=== PATIENT | female | born 1995 | race Caucasian/White ===

== ENCOUNTER 2024-12-18 11:54 | Inpatient (IN) | payer BC, SELFPAY ==
[2024-12-18] VITALS (28 sets, daily range): BP systolic 100–153; BP diastolic 62–90; PULSE 63–108; RESP 12–99; TEMP 36.6–36.8; O2SAT 93–99; BMI 27.4
[2024-12-18] MEDS: RINGERS LACTATED 1000 ML 1,000 ML 100 ML IV (12:00)
--- NOTE | 2024-12-18 12:19 | ESHP_ITS ---
Documentation for date of: 12/18/24 OB Labor/Induct. HPI History of Present Illness Chief complaint: Active labor, prior : 4 Term pregnancies: 1 pregnancies: 0 Living children: 1 History of Abortions: Spontaneous and Elective: 2 History of sections: Yes History of : No TEX: 12/25/24 Gestational Age (weeks): 39 Gestational Age (days): 0 History of present illness: Patient is a 29-year-old -0-2-1 at 39 weeks with an EDC of 12/25/2024 who presented to triage in active labor. She was painfully saul every 3 minutes. Her bag of dennis was intact and she denied any vaginal bleeding. She reported good movement. She had a history of x 1 for arrest of descent and an 11 pound baby. She is consented for repeat in labor. All care is up-to-date in the chart with Dr Krishna. She was to be scheduled for a on 12/20/24. History of Present Dating criteria: LMP confirmed by 1st trimester US Adequate Care: Yes Ultrasounds: normal mid trimester US Obstetrical complications: none Medical complications: none Labs Maternal Blood Type: A Pos Labs: Positive: Rubella Titre and Negative: RPR, Hepatitis B, HIV, Chlamydia, Gonorrhea and Group Beta Strep Past Medical History Surgical History SURGICAL: Positive Section Past Medical History Comments PMH COMMENT: Patient has a history of migraine headaches, iron deficiency anemia, and GERD. She denies any other surgical history. Meds Home Medications and Allergies Home Medications ?Medication ?Instructions ?Recorded ?Confirmed ?Type iron 18 mg tablet 18 mg PO QDAY 02/08/2112/18 History prenat.vits,gerry,efv-xxxy-dbwoe 1 tab PO QDAY 02/08/21 12/18/24 History ferrous sulfate 325 mg (65 mg mg 12/18/24 History iron) tablet (FeroSul) vits no.130-ferrous fum tab 12/18/24 History 27 mg iron-folic acid 800 mcg tablet ( Vitamin) Allergies Allergy/AdvReac Type Severity Reaction Status Date / Time No Known Allergies Allergy Verified 12/18/24 12:12 OB Exam Physical Exam Vital signs: Pulse BP Pulse Ox 90 130/72 95 12/18/24 11:58 12/18/24 11:58 12/18/24 12:19 Constitutional Constitutional: moderate distress Comments: Patient is breathing through contractions and is uncomfortable. Routine Cardiovascular Exam Cardiovascular: Present RRR Routine Abdominal Exam Abdominal: Present soft and surgical scars (Well-healed Pfannenstiel incision) Comments: This approximately 36 weeks. EFW by Ez's about 8 pounds. 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 The risks of the procedure were discussed the patient including the risk of bleeding, infection, blood transfusion, damage to bowel, bladder, blood vessels, or other organs. Prolonged hospital stay and further surgery should any of the above occur. All questions were answered and all consents were signed. A consent for blood transfusion was also signed. Additional Plan Additional Plan Comment: Team called in and aware of repeat in labor about noon on 12/18/24
[2024-12-18 12:53] LABS: Basophils % (Auto) 0 % (0-2.5); Eosinophils # (Auto) 0.1 Thou/mm3 (0.0-0.5); Eosinophils % (Auto) 1 % (0-10); Hematocrit 33.2 % (36.0-46.0); Hemoglobin 11.2 g/dL (12.0-16.0); Immature Granulocytes % (Auto) 1 % (0-0); Immature Granulocytes Auto 0.07 Thou/mm3 (0.00-0.00); Lymphocytes # (Auto) 1.4 Thou/mm3 (1.0-4.8); Lymphocytes % (Auto) 15 % (10-50); Mean Corpuscular HGB Conc 33.7 g/dl (31.0-37.0); Mean Corpuscular Hemoglobin 32.3 pg (25.0-35.0); Mean Corpuscular Volume 96 fL (80-100); Monocytes # (Auto) 0.8 Thou/mm3 (0.0-0.8); Monocytes % (Auto) 9 % (0-12); Neutrophils # (Auto) 6.6 Thou/mm3 (1.8-7.7); Neutrophils % (Auto) 74 % (37-80); Nucleated Red Blood Cell % 0 /100 WBC (0); Platelet Count 185 Thou/mm3 (140-440); RDW Standard Deviation 50.3 fL (36.4-46.3); Red Blood Count 3.47 Miln/mm3 (4.00-5.20); White Blood Count 8.9 Thou/mm3 (3.6-11.0)
[2024-12-18] MEDS: FAMOTIDINE INJ 10 MG/ML VIAL 2 ML 20 MG IV (12:55)
[2024-12-18] MEDS: CITRIC ACID/SODIUM CITR 15 ML UDC (BICITRA) 30 ML PO (12:56)
[2024-12-18] MEDS: ceFAZolin/D5W 2 GM IV 2 GM/100 ML BAG IV (12:56)
[2024-12-18 13:28] LABS: Syphilis Nonreactive (Nonreactive)
--- NOTE | 2024-12-18 13:51 | ESOP_ITS ---
Operative Note - MD PHYSICIAN DERMATOLOGIST Procedure Date of procedure: 12/18/24 Procedure Performed: Repeat low-transverse section Indication: The patient is a 29-year-old -0-2-1 history of x 1 almost 4 years ago for arrest of descent. That baby weighed close to 11 pounds. Patient presented to triage in active labor painfully saul every 3 minutes. She is 39-0/7 weeks . All care uncomplicated and on the chart with Dr Krishna. She was consented for repeat section in labor. Pre-Op diagnosis: 1. Intrauterine at 39-0/7 weeks 2. Previous x 1 3. Active labor, for repeat section Post-Op diagnosis: Same Anesthesia type: Spinal Procedure description: After obtaining informed consent, the patient was brought back to the operating room and spinal anesthesia administered. She was then prepped and draped in the dorsal supine position with a leftward tilt in a normal sterile fashion. A Harman catheter was inserted into the patient's bladder. The patient was given Ancef 2 g IV by anesthesia. A Pfannenstiel skin incision was made with a scalpel through the patient's prior scar and carried down to the underlying fascia. The fascia was incised in the midline and the fascial incision extended laterally using Keith scissors. The superior aspect of the fascia was grasped with Adelina clamps and the underlying rectus muscles dissected off using blunt and sharp dissection. This was repeated in the inferior aspect of the incision. The rectus muscles were in the midline and the peritoneal cavity entered sharply with Metzenbaums. This was extended superiorly and inferiorly with good visualization of the bladder. The bladder blade was inserted and the uterus was incised in a low transverse fashion above the bladder reflection. The uterine incision was extended laterally using blunt dissection with the surgeon's fingers. The bag dennis was ruptured and clear fluid was noted. The bladder blade was removed, and the was delivered atraumatically in a vertex presentation. The cord was clamped and cut after waiting approximately 30 seconds, and the infant was handed off to the waiting pediatric staff. Cord blood was collected Cord gases were saved. The placenta was then manually removed and handed off the operating field. The uterus was exteriorized, and cleared of all clots and debris. The uterine incision was repaired using 0 Monocryl in a running locked fashion. Excellent hemostasis was noted. As the uterus was slightly boggy, IM Methergine was called for and given by anesthesia. The uterus was returned to the patient's abdominal cavity, and copious irrigation carried out with warm normal saline. The uterine incision was reexamined several times and noted to be hemostatic. After ensuring the rectus muscles were hemostatic these were closed in the midline using a running suture of 0 Monocryl. The fascia was closed with 0 Vicryl in a running fashion. The subcutaneous tissues were irrigated and found to be hemostatic. The skin was closed with a subcuticular suture of 4-0 Monocryl. The patient tolerated the procedure well, sponge, lap, needle, and instrument counts were correct x 2. The patient went to the recovery area awake and in stable condition. Complications were none. Fluids: crystalloid Fluid amount (mL): 1,000 Urine output (mL): 200 Specimen: none Implants: None Estimated blood loss (ml): 400 Findings: Liveborn female in the OA presentation, with no nuchal cord and no meconium. Apgars were 9 and 9 weight was 3560 g or approximately 7 pounds 14 ounces. Normal uterus and fallopian tubes. Ovaries enlarged consistent with possible PCOS bilaterally. Very little scar tissue was present in the patient's abdomen. The low uterine segment was thick. Complications: none Surgical staff Lyn MAURER Surgical Polisher Sand Margaret Hall CRNA Operation Date: 12/18/24 13:00 <No data on this case meets the specified criteria> Diagnosis Discharge Diagnosis (1) Previous section: Status: Acute (2) Active labor at term: Status: Acute (3) Delivery by section: Status: Acute Problem details: Routine postop care Problem List Completed Was Problem List Reviewed/Reconciled?: Yes
[2024-12-18] MEDS: ONDANSETRON INJ 2 MG/ML INJ 2 ML 4 MG IV (14:30)
[2024-12-18] MEDS: KETOROLAC INJ 30 MG/ML VIAL IVP (15:30)
[2024-12-18] MEDS: OXYTOCIN in NS 20 units 20 UNIT/1,000 ML BAG 125 UNIT IV (17:04)
[2024-12-19] MEDS: OXYTOCIN in NS 20 units 20 UNIT/1,000 ML BAG 125 UNIT IV (00:32)
[2024-12-19 04:39] VITALS: BP 100/63; PULSE 63; RESP 18; TEMP 36.9; O2SAT 95
[2024-12-19 05:25] LABS: Basophils % (Auto) 0 % (0-2.5); Eosinophils % (Auto) 0 % (0-10); Hematocrit 31.4 % (36.0-46.0); Hemoglobin 10.7 g/dL (12.0-16.0); Immature Granulocytes % (Auto) 1 % (0-0); Immature Granulocytes Auto 0.08 Thou/mm3 (0.00-0.00); Lymphocytes # (Auto) 1.6 Thou/mm3 (1.0-4.8); Lymphocytes % (Auto) 11 % (10-50); Mean Corpuscular HGB Conc 34.1 g/dl (31.0-37.0); Mean Corpuscular Hemoglobin 31.9 pg (25.0-35.0); Mean Corpuscular Volume 94 fL (80-100); Monocytes # (Auto) 1.3 Thou/mm3 (0.0-0.8); Monocytes % (Auto) 9 % (0-12); Neutrophils % (Auto) 79 % (37-80); Nucleated Red Blood Cell % 0 /100 WBC (0); Platelet Count 186 Thou/mm3 (140-440); RDW Standard Deviation 48.5 fL (36.4-46.3); Red Blood Count 3.35 Miln/mm3 (4.00-5.20)
--- NOTE | 2024-12-19 07:20 | ESPR_ITS ---
Subjective Subjective Interval history: Patient denies any problem complaint. She is voiding and ambulating and tolerating a regular diet. She denies any excessive vaginal bleeding. She denies any chest pain palpitation shortness of breath or lower extremity pain. Exam Vital Signs Temp Pulse Resp BP Pulse Ox O2 Del Method 98.4 F 63 18 100/63 95 Room Air 12/19/24 04:39 12/19/24 04:39 12/19/24 04:39 12/19/24 04:39 12/19/24 04:39 12/19/24 04:39 Routine Respiratory Exam Comments: Clear to auscultation bilaterally Routine Cardiovascular Exam Comments: Regular rate and rhythm Routine Abdominal Exam Comments: Dressing dry and intact, fundus is firm, nondistended Routine Extremities Exam Comments: Nontender or edema Objective Labs 12/19/24 04:45 Labs: Laboratory Results - last 24 hr 12/18/24 12/19/24 12:20 04:45 WBC 8.9 14.0 H D RBC 3.47 L 3.35 L Hgb 11.2 L 10.7 L Hct 33.2 L 31.4 L MCV 96 94 MCH 32.3 31.9 MCHC 33.7 34.1 RDW Std Deviation 50.3 H 48.5 H Plt Count 185 186 Neut % (Auto) 74 79 Lymph % (Auto) 15 11 [place] % (Auto) 9 9 Eos % (Auto) 1 0 Baso % (Auto) 0 0 Neut # (Auto) 6.6 11.0 H Lymph # (Auto) 1.4 1.6 [place] # (Auto) 0.8 1.3 H Eos # (Auto) 0.1 0.0 Baso # (Auto) 0.0 0.0 Immature Gran # (Auto) 0.07 H 0.08 H Absolute Nucleated RBC 0.00 0.00 Immature Gran % 1 H 1 H Nucleated RBC % 0 0 Syphilis Serology Nonreactive Blood Type A Positive Antibody Screen NEGATIVE Blood Bank Wristband ID Yes Assessment & Plan Problem List (1) Previous section: Status: Acute Assessment and plan: Remove dressing DC IV Encourage ambulation groundwater consultant Discharge home tomorrow (2) Active labor at term: Status: Acute (3) Delivery by section: Problem details: Routine postop care Status: Acute Time Spent With Patient Time: Total time spent is greater than 50% in coordination of care (as documented) at patient's floor/unit and/or counseling patient:
[2024-12-19 08:15] VITALS: BP 102/68; PULSE 82; RESP 14; TEMP 36.6; O2SAT 100
[2024-12-19] MEDS: KETOROLAC INJ 30 MG/ML VIAL IVP (08:23)
[2024-12-19] MEDS: DOCUSATE SOD 100 MG CAPSULE PO (08:23)
[2024-12-19 12:00] VITALS: BP 103/65; PULSE 71; RESP 16; TEMP 36.9; O2SAT 98
[2024-12-19 19:45] VITALS: BP 99/64; PULSE 82; RESP 16; TEMP 36.8; O2SAT 95
[2024-12-19] MEDS: IBUPROFEN TAB 400 MG TABLET 800 MG PO (20:14)
[2024-12-19] MEDS: Milk Of Magnesia Susp 30 ML UDC PO (20:15)
[2024-12-19] MEDS: SIMETHICONE 80 MG CHEW PO (20:15)
[2024-12-20 03:20] VITALS: BP 101/66; PULSE 78; RESP 16; TEMP 36.6; O2SAT 97
--- NOTE | 2024-12-20 03:31 | ESPR_ITS ---
Subjective Subjective Interval history: Patient denies any problem or complaint. She is voiding and ambulating and tolerating a regular diet. She denies any excessive vaginal bleeding. She denies any dizziness or lightheadedness. She denies any chest pain palpitations shortness of breath or lower extremity pain. She denies any depression or anxiety. Exam Vital Signs Temp Pulse Resp BP Pulse Ox O2 Del Method 98.2 F 82 16 99/64 95 Room Air 12/19/24 19:45 12/19/24 19:45 12/19/24 19:45 12/19/24 19:45 12/19/24 19:45 12/19/24 19:45 Routine Respiratory Exam Comments: Clear to auscultation bilaterally Routine Cardiovascular Exam Comments: Regular rate and rhythm Routine Abdominal Exam Comments: Incision clear and intact. Fundus is firm Routine Extremities Exam Comments: Nontender or edema Objective Labs 12/19/24 04:45 Labs: Laboratory Results - last 24 hr 12/19/24 04:45 WBC 14.0 H D RBC 3.35 L Hgb 10.7 L Hct 31.4 L MCV 94 MCH 31.9 MCHC 34.1 RDW Std Deviation 48.5 H Plt Count 186 Neut % (Auto) 79 Lymph % (Auto) 11 [place] % (Auto) 9 Eos % (Auto) 0 Baso % (Auto) 0 Neut # (Auto) 11.0 H Lymph # (Auto) 1.6 [place] # (Auto) 1.3 H Eos # (Auto) 0.0 Baso # (Auto) 0.0 Immature Gran # (Auto) 0.08 H Absolute Nucleated RBC 0.00 Immature Gran % 1 H Nucleated RBC % 0 Assessment & Plan Problem List (1) Previous section: Status: Acute Assessment and plan: Discharge home Discharge instructions given Follow-up in the office in 1 week (2) Active labor at term: Status: Acute (3) Delivery by section: Problem details: Routine postop care Status: Acute Time Spent With Patient Time: Total time spent is greater than 50% in coordination of care (as documented) at patient's floor/unit and/or counseling patient:
--- NOTE | 2024-12-20 03:31 | PD.LDDS ---
DS: Providers Provider Date of admission: 12/18/24 12:08 Primary care physician: Physician No Primary/Family Admitting Provider: Davida Aguiar MD ([facility]) Attending Provider on Admission: Yung Krishna MD Consults: 12/18/24 13:49 Referral Routine Comment: Attending Provider on DC: Yung Krishna MD Discharging Provider: Yung Krishna MD DS: Diagnosis Problem List Completed Was Problem List Reviewed/Reconciled?: Yes Summary/Hosp Course Brief History: Patient is a 29-year-old -0-2-1 at 39 weeks with an EDC of 12/25/2024 who presented to triage in active labor. She was painfully saul every 3 minutes. Her bag of dennis was intact and she denied any vaginal bleeding. She reported good movement. She had a history of x 1 for arrest of descent and an 11 pound baby. She is consented for repeat in labor. All care is up-to-date in the chart with Dr Krishna. She was to be scheduled for a on 12/20/24. Peripartum Data Delivery Method: Low Transverse Procedures: Procedures Operation Date: 12/18/24 13:00 Actual Procedure Side Surgeon p in OB Davida Aguiar ([facility])MD Time Spent with Patient Time attestation: Total time spent providing and/or coordinating discharge services: Exam Vital Signs Temp Pulse Resp BP Pulse Ox O2 Del Method 98.2 F 82 16 99/64 95 Room Air 12/19/24 19:45 12/19/24 19:45 12/19/24 19:45 12/19/24 19:45 12/19/24 19:45 12/19/24 19:45 Discharge Plan Plan Patient Disposition: HOME (Self Care) Patient condition on transfer: Stable Prescriptions/Referrals Prescriptions/Med Rec: New hydrocodone-acetaminophen 5-325 mg tablet 1 tab PO Q6H MDD 4 PRN (Reason: pain) Qty: 20 0RF ibuprofen 600 mg tablet 600 mg PO Q6H MDD 4 PRN (Reason: pain) Qty: 30 0RF Continued ferrous sulfate [FeroSul] 325 mg (65 mg iron) tablet Patient Comments: TAKE 1 TABLET BY MOUTH TWICE DAILY No Action Vitamin Tablet 1 tab PO QDAY iron 18 mg Tablet 18 mg PO QDAY Vitamin 27 mg iron- 800 mcg tablet Patient Comments: TAKE 1 TABLET BY MOUTH ONCE DAILY Referrals: No Primary/Family,Physician [Primary Care Provider] - Patient/Caregiver Discharge Instructions Education Materials: C Section Dc Print Language: Amharic Stand Alone Forms: [employer] Deng Info., Patient Portal Info Letter Planned Discharge Date 12/20/24
[2024-12-20] MEDS: IBUPROFEN TAB 400 MG TABLET 800 MG PO (03:52)
[2024-12-20 08:00] VITALS: BP 110/62; PULSE 85; RESP 16; TEMP 36.8
[2024-12-20] MEDS: DOCUSATE SOD 100 MG CAPSULE PO (09:47)
== END 2024-12-20 11:42 | disposition home or self-care (01) | DRG 788 ==
LOC: S4SX 12:39 → S4NX 13:13
PROVIDERS: Admitting Provider Obstetrics & Gynecology; Visit Provider Specialist
PROC: 10D00Z1 Extraction of Products of Conception, Low, Open Approach (ICD-10-PCS; CPT 59514; principal; 2024-12-18 12:45)
DX: O34.211 Maternal care for low transverse scar from previous cesarean delivery (principal); Z37.0 Single live birth; Z3A.39 39 weeks gestation of pregnancy
CPT/HCPCS: 36415; 85025; 86780; 86850; 86900; 86901; A4649; J0689; J1100; J1885; J2210; J2274; J2371; J2405; J2590; J3010; J3490; J7120; A9270; J2270

== ENCOUNTER 2024-12-24 18:41 | Inpatient (IN) | payer BC, SELFPAY ==
[2024-12-24 18:43] VITALS: BMI 25.2
[2024-12-24 18:48] VITALS: BP 150/84; PULSE 95; RESP 18; TEMP 38.1; O2SAT 97
--- NOTE | 2024-12-24 19:00 | EKG_ITS ---
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
--- NOTE | 2024-12-24 19:01 | PD.EDRME ---
Rapid Medical Screening Exam RME Arrival date/time: 12/24/24 18:41 29 yo f present to Ed for c/o of fever, recent C/S I have greeted and performed a focused initial assessment of this patient. A comprehensive ED assessment and evaluation of the patient, analysis of all test results, and completion of the medical decision making process will be conducted by additional ED providers. Chief Complaint: Fever Time Seen by Provider: 12/24/24 18:45 Vital signs: Vital Signs Temperature 100.6 F H 12/24/24 18:48 Pulse Rate 95 12/24/24 18:48 Respiratory Rate 18 12/24/24 18:48 Blood Pressure 150/84 H 12/24/24 18:48 Pulse Oximetry (%) 97 12/24/24 18:48 Oxygen Delivery Method Room Air 12/24/24 18:48
[2024-12-24 19:19] VITALS: TEMP 38.1
[2024-12-24] MEDS: ACETAMINOPHEN 500 MG TABLET 1000 MG PO (19:19)
--- NOTE | 2024-12-24 19:21 | PC.NURSE ---
per Provider Donna viveroscel sepsis alert
--- NOTE | 2024-12-24 19:29 | PD.EDFEVER ---
ED Fever RME/HPI General Chief Complaint: Fever Stated Complaint: FEVER 100.5 TODAY, S/P 02/17 Time Seen by Provider: 12/24/24 18:45 Arrival date/time: 12/24/24 18:41 RME / HPI RME / HPI Narrative: 12/24/24 18:41 29 yo f present to Ed for c/o of fever, recent C/S I have greeted and performed a focused initial assessment of this patient. A comprehensive ED assessment and evaluation of the patient, analysis of all test results, and completion of the medical decision making process will be conducted by additional ED providers. This section includes all my notes and documentations, including HPI, PE, and ED course. Spencer Thompson MD HPI: 29 y/o female with recent SHx of section and Hx of Migraine and Anemia presents to ED c/o fever of 100.3F for 24 hours. Denies any cough, runny nose, or sore throat. Patient recently had 6 days ago and is currently pumps breast milk. No headache. No neck pain or stiffness. No abdominal pain. No pelvic pain. No vaginal discharge. No back pain or flank pain. No other complaints reported. ROS: All negative except as documented in HPI. Physical Exam: General: Alert and oriented. No acute distress when remaining still. Eyes: Conjunctivae and lids clear. ENT: No nasal congestion. Neck: Supple. Heart: RRR. Lungs: No respiratory distress. Good air movement. No rhonchi, wheezing, rales. Abdomen: Soft with diffuse tenderness, consistent with recent . Normal bowel sounds. No distension. No rebound or guarding. Back: No CVA tenderness. Skin: Warm and dry. Neuro: Alert and oriented X 3. I reviewed all diagnostic test results. My interpretation of the EKG is sinus rhythm with no acute ST?T changes. My interpretation of the chest x-ray is no active disease. My review of the abdomen/pelvis CT report is NAD. My review of the transvaginal US report is retained products of conception. Blood tests remarkable for ESR 35, CRP 4.4. UA showed RBC 74 and WBC 26 and rare bacteria. COVID/influenza negative. At this point, diagnoses include Endometritis and UTI. Treatment here included Ibuprofen, Zofran, Zosyn, and IV fluid. Patient remained stable. I discussed the case with our [employer]AVER, Dr. Krishna. About the presentation and exam and diagnostics and treatments here. And need of further care in the hospital. Will accept the patient. Spencer Thompson MD Related Data Home Medications ?Medication ?Instructions ?Recorded ?Confirmed ferrous sulfate 325 mg (65 mg mg 12/18/24 iron) tablet (FeroSul) vits no.130-ferrous fum tab 12/18/24 27 mg iron-folic acid 800 mcg tablet ( Vitamin) Previous Rx's ?Medication ?Instructions ?Recorded hydrocodone 5 mg-acetaminophen 325 1 tab PO Q6H PRN pain #20 tabs 12/19/24 mg tablet ibuprofen 600 mg tablet 600 mg PO Q6H PRN pain #30 tabs 12/19/24 Allergies Allergy/AdvReac Type Severity Reaction Status Date / Time No Known Allergies Allergy Verified 12/24/24 18:43 Review of Systems Review of Systems Systems Reviewed: All systems reviewed, normal except as documented Narrative Review of Systems: Refer to HPI above. Past Medical History Past Medical History NEUROLOGIC: Positive Neurological Disorders and Migraine (TYLENOL) RESPIRATORY: Positive Pneumonia GENITOURINARY: Positive Genitourinary Disorders (UTI WITH ABT TX.) REPRODUCTIVE: Positive Previous Pregnancies MUSCULOSKELETAL: Positive Musculoskeletal Disorders (CARPAL TUNNEL) HEMATOLOGIC: Positive Blood Disorders and Anemia Family History FAMILY HISTORY: Positive Family Cancer (MATERNAL GMA- UNKNOWN CA) Surgical History SURGICAL: Positive Section Physical Exam Narrative Physical exam: Refer to HPI above. ED Exam Narrative Physical exam: Refer to HPI above. Course Quality Measures none Orders Category Date Time Status Bedside COVID-19 Antigen Test NOW Care 12/24/24 19:37 Active Bedside Influenza A&B Antigen Test NOW Care 12/24/24 19:[address] Screening NOW Care 12/24/24 19:00 Active EKG (ED ONLY) *Do not use* NOW Care 12/24/24 19:[address] abdomen pelvis wo con Stat Exams 12/24/24 19:39 Completed EKG (ED Only) Stat Exams 12/24/24 19:00 Draft US transvaginal Stat Exams 12/24/24 21:46 Completed XR chest 1V portable Stat Exams 12/24/24 19:39 Completed Blood Culture (Lab) Stat Lab 12/24/24 19:43 Received C-Reactive Protein Stat Lab 12/24/24 19:51 Completed CBC Stat Lab 12/24/24 19:51 Completed Comprehensive Metabolic Panel Stat Lab 12/24/24 19:51 Completed Lactate (Lactic Acid) Stat Lab 12/24/24 19:51 Completed Lipase Stat Lab 12/24/24 19:51 Completed Magnesium Stat Lab 12/24/24 19:51 Completed Procalcitonin Stat Lab 12/24/24 19:51 Completed RSV [Respiratory Syncytial Virus Ag] Stat Lab 12/25/24 01:24 Received Sed Rate (ESR) Stat Lab 12/24/24 19:51 Completed Urinalysis Stat Lab 12/24/24 19:45 Completed Urine Culture Stat Lab 12/24/24 19:45 Received Urine Culture Stat Lab 12/24/24 21:45 Ordered Acetaminophen Tab [Tylenol ES Tab] Med 12/24/24 19:01 Discontinued 1,000 mg PO X1 ONE Ibuprofen Tab [Motrin Tab] Med 12/24/24 19:38 Discontinued 600 mg PO X1 ONE Piper/Tazo 3.375 gm Premix [Zosyn] Med 12/24/24 23:48 Discontinued 3.375 gm in 50 ml IV X1 Sodium Chloride 0.9% 1000 ml [Ns] 1,000 ml Med 12/24/24 19:01 Discontinued IV 999 mls/hr Vital Signs Vital signs: Vital Signs Temperature 100.6 F H 12/24/24 18:48 Pulse Rate 95 12/24/24 18:48 Respiratory Rate 18 12/24/24 18:48 Blood Pressure 150/84 H 12/24/24 18:48 Pulse Oximetry (%) 97 12/24/24 18:48 Oxygen Delivery Method Room Air 12/24/24 18:48 Fever MDM Narrative MDM Narrative:: Scribe Attestation: I, Sol Zhao, am scribing for and in the presence of Dr. Thompson. Provider Notation: Although this document has been carefully reviewed, there may still be some phonetic and other typographical errors. These errors are purely grammatical due to imperfections in the software program and should not be construed in any way to compromise the substance of the patient's medical care during this visit. 29 y/o female with recent SHx of section and Hx of Migraine and Anemia presents to ED c/o fever of 100.3F x 1 day. Denies any cough, runny nose, or sore throat. Patient recently had 6 days ago and is currently pumps breast milk. No other complaints reported. Patient data External records reviewed:: [facility] previous records (No recent ED records to review.) Clinical information provided by:: patient Social determinants that could affect healthcare access:: none Patient has the following chronic illnesses:: Anemia, Migraine, SHx How is presenting disease/condition affected by chronic disease/condition?: exacerbated by Evaluation data The following diagnostics were reviewed and interpreted by me:: lab results, radiology exam(s) and EKG tracing(s) Lab and/or radiology exams considered but not ordered:: None. Interpretation Summary: Endometritis and UTI Medications / Prescriptions Medications or Prescriptions considered but not ordered:: None. Medication administrations:: Medication Administration History Acetaminophen (Acetaminophen 325 Mg Tablet) 650 mg PO Q6H PRN PRN Reason: Fever >101.5 Stop: 01/23/25 23:51 Hydrocodone Bitart/Acetaminophen (Hydrocodone/Apap 10/325 Tab) 1 tab PO Q4H PRN PRN Reason: PAIN SCALE 7-10 (Severe Stop: 12/29/24 23:51 Bisacodyl (Bisacodyl 5 Mg Tabec) 10 mg PO QDAY PRN PRN Reason: CONSTIPATION Stop: 01/23/25 23:51 Bisacodyl (Bisacodyl 10 Mg Supp) 10 mg WI QDAY PRN PRN Reason: CONSTIPATION Stop: 01/23/25 23:51 Dextrose/Sodium Chloride (D5-1/2ns) 1,000 mls @ 75 mls/hr IV .[id number] ELAINE Stop: 01/23/25 23:44 Piperacillin/Tazobactam/Dextrose (Zosyn) 50 mls @ 100 mls/hr IV Q6HR ELAINE Stop: 01/01/25 00:01 Ibuprofen (Ibuprofen Tab 600 Mg Tablet) 600 mg PO Q6H PRN PRN Reason: PAIN SCALE 1-3 (mild Stop: 01/23/25 23:51 Ondansetron HCl (Ondansetron Inj 2 Mg/Ml Inj 2 Ml) 4 mg IV Q6H PRN PRN Reason: NAUSEA OR VOMITING Stop: 01/23/25 23:51 Oxycodone/Acetaminophen (Oxycodone/Apap 5/325 Tablet) 1 tab PO Q6H PRN PRN Reason: PAIN SCALE 4-6 (Moderate Stop: 12/29/24 23:51 Discontinued Medications Acetaminophen (Acetaminophen 500 Mg Tablet) 1,000 mg PO X1 ONE Stop: 12/24/24 19:02 Last Admin: 12/24/24 19:19 Dose: 1,000 mg Documented By: ADAM Sodium Chloride (Ns) 1,000 mls @ 999 mls/hr IV .Q1H1M ONE Stop: 12/24/24 20:01 Last Admin: 12/24/24 19:35 Dose: Not Given Documented By: ADAM Non-Admin Reason: Discontinued Piperacillin/Tazobactam/Dextrose (Zosyn) 3.375 gm in 50 mls @ 100 mls/hr IV X1 ONE Stop: 12/25/24 00:17 Last Admin: 12/25/24 01:23 Dose: 100 mls/hr Documented By: VISHNU Sodium Chloride (Ns) 1,000 mls @ 999 mls/hr IV .Q1H1M ONE Stop: 12/25/24 00:53 Last Admin: 12/25/24 01:14 Dose: 999 mls/hr Documented By: VISHNU Ibuprofen (Ibuprofen Tab 600 Mg Tablet) 600 mg PO X1 ONE Stop: 12/24/24 19:39 Last Admin: 12/25/24 01:11 Dose: Not Given Documented By: MC Non-Admin Reason: Patient Refused Ondansetron HCl (Ondansetron Inj 2 Mg/Ml Inj 2 Ml) 4 mg IV X1 ONE; Protocol Stop: 12/24/24 23:54 Last Admin: 12/25/24 01:10 Dose: Not Given Documented By: MC Non-Admin Reason: Patient Refused Ibuprofen, Zofran, Zosyn, IV fluid Consultations Consultation(s) initiated? (list below): No Consultation #1 (Physician, Specialty, Details): I discussed the case with our [employer]ER, Dr. Krishna. About the presentation and exam and diagnostics and treatments here. And need of further care in the hospital. Will accept the patient. Diagnosis Fever Differential Diagnosis: fever of unknown origin, viral infection, influenza and other (pelvic inflammatory disease (PID) vs endometriosis vs fever) Most likely diagnosis given after review of the tests above:: Endometritis and UTI Admission Indicated Admission indicated?: indicated Admission Request Was there a request for admission?: Yes Admission Attestation Admission request attestation: Discussed case with [employer] service regarding admission. Discussed patients ED course, exam findings, labs, and radiology results. Agrees to accept the patient for admission. Disposition Plan Disposition Plan: Admit Discharge Plan Plan Patient Disposition: Admit Acute Care w/in Hospital Problem List Clinical Impression: Endometritis, UTI (urinary tract infection)
--- NOTE | 2024-12-24 19:39 | XR_ITS ---
Examination: PA chest single view Technique: Upright PA chest single view Exam date and time: December 24, 20242 hrs. Indications: Status post December 20, 2024 with onset fever today. Findings: Normal heart size. Lungs are clear. The osseous structures are intact Impression: No active disease
--- NOTE | 2024-12-24 19:39 | XR_ITS ---
Examination: CT abdomen and pelvis without contrast. Coronal 3-D reconstructions. Sagittal 2-D reconstructions. Date and time of exam:December 24, 2024 2005 hrs. Indications: Fever after December 18, 2024 CTDI: vol (mGy): 68 DLP: (mGycm): 683 Technique: Axial images of the abdomen have been obtained, 3 mm slice thickness Intravenous contrast material has not been administered. Low dose protocols were performed. One or more of the following dose reduction techniques were used; automated exposure control, adjustment of the mA and/or KV according to patient size, use of iterative reconstruction technique. Findings: No focal liver or splenic lesions No gallstones No pancreatic mass Multiple left renal calculi, the largest 5 mm No hydronephrosis or ureteral calculi Aorta normal size No pericecal inflammatory change Abundant stool throughout the colon enlarged uterus with heterogeneous endometrial stripe Urinary bladder wall thickening up to 4 mm No bladder calculi Osseous structures intact Impression: Recommend transvaginal pelvic sonography follow-up to exclude retained positive conception Multiple nonobstructing left renal calculi No CT findings of bowel obstruction or diverticulitis Mild cystitis pattern
[2024-12-24 19:49] LABS: Collection Type, Urine Clean Catch
[2024-12-24 19:59] LABS: Lactate (Lactic Acid) 0.9 mMol/L (0.4-2.0)
[2024-12-24 20:02] LABS: Basophils % (Auto) 0 % (0-2.5); Eosinophils # (Auto) 0.1 Thou/mm3 (0.0-0.5); Eosinophils % (Auto) 1 % (0-10); Hematocrit 35.4 % (36.0-46.0); Hemoglobin 11.8 g/dL (12.0-16.0); Immature Granulocytes % (Auto) 1 % (0-0); Immature Granulocytes Auto 0.07 Thou/mm3 (0.00-0.00); Lymphocytes # (Auto) 1.6 Thou/mm3 (1.0-4.8); Lymphocytes % (Auto) 16 % (10-50); Mean Corpuscular HGB Conc 33.3 g/dl (31.0-37.0); Mean Corpuscular Hemoglobin 31.6 pg (25.0-35.0); Mean Corpuscular Volume 95 fL (80-100); Monocytes # (Auto) 0.8 Thou/mm3 (0.0-0.8); Monocytes % (Auto) 8 % (0-12); Neutrophils # (Auto) 7.4 Thou/mm3 (1.8-7.7); Neutrophils % (Auto) 74 % (37-80); Nucleated Red Blood Cell % 0 /100 WBC (0); Platelet Count 345 Thou/mm3 (140-440); RDW Standard Deviation 49.3 fL (36.4-46.3); Red Blood Count 3.74 Miln/mm3 (4.00-5.20); White Blood Count 9.9 Thou/mm3 (3.6-11.0)
[2024-12-24 20:02] LABS: Bacteria,Urine Rare; Bilirubin,Urine Negative (Negative); Blood,Urine 3+ (Negative); Clarity,Urine Clear (Clear/Hazy); Color,Urine Lt-Yellow (Lt Yel-Yel); Glucose, Urine Negative (Negative); Hyaline Casts,Urine < 1 /hpf (0-1); Ketones,Urine Negative (Negative); Leukocyte Esterase,Urine Positive (Negative); Nitrite,Urine Negative (Negative); PH,Urine 6.5 (5.0-7.0); Protein,Urine Negative (Neg - Trace); RBC,Urine 74 /hpf (0-3); Specific Gravity,Urine 1.015 (1.001-1.035); Squamous Epithelial Cell,Urine 4 /hpf (0-5); Urobilinogen,Urine Negative mg/dL (0.0-1.0); WBC,Urine 26 /hpf (0-5)
[2024-12-24 20:30] LABS: Alanine Aminotransferase 17 U/L (10-49); Albumin, Serum 3.8 gm/dL (3.5-5.0); Albumin/Globulin Ratio 1.5 (1.2-2.2); Alkaline Phosphatase 189 U/L (46-116); Anion Gap 7 (7-16); Aspartate Amino Transferase 23 U/L (0-34); BUN/Creatinine Ratio 23 Ratio (12-20); Bilirubin,Total 0.9 mg/dL (0.3-1.2); Blood Urea Nitrogen 14 mg/dL (9-23); C-Reactive Protein 4.4 mg/dL (0.0-0.9); Calcium 8.8 mg/dL (8.3-10.6); Carbon Dioxide 23.1 mMol/L (20.0-31.0); Chloride 107 mMol/L (98-107); Creatinine (Component) 0.6 mg/dL (0.6-1.3); Globulin 2.5 gm/dL (2.3-3.5); Glucose 100 mg/dL (74-106); Lipase 29 U/L (12-53); Magnesium 1.7 mg/dL (1.6-2.6); Osmolality,Calculated 274 (275-295); Potassium 3.9 mMol/L (3.4-5.1); Procalcitonin 0.04 ng/ml (0.0-0.49); Sodium 137 mMol/L (136-145); Total Protein 6.3 gm/dL (5.7-8.2); eGFR > 60 See Note
[2024-12-24 21:13] LABS: Sed Rate (ESR) 35 mm/hr (0-20)
--- NOTE | 2024-12-24 21:46 | XR_ITS ---
Examination: Transvaginal ultrasound of the pelvis, complete Technique: Transvaginal sonographic images pelvis performed using pope scale imaging Exam date and time: December 24, 2024 at 10:22 PM Indications: Acute fever post December 20, 2024 Findings: Uterus 13.4 cm with thickened endometrium up to 29 mm No uterine mass Right ovary 3.0 cm arterial flow Left ovary 3.7 cm arterial flow Impression: Positive for retained products of conception.
--- NOTE | 2024-12-25 00:03 | PD.GYNHP ---
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 SNOWDEN is a 29 year old female who is PostOp Day #7 S/P Ceasarean Delivery who presents to the ER complaining of fever with no other complaints. Her temperature in the ER was 100.3. She is breast feeding and report breast engorgment but no breast tenderness or masses or discoloration. She denies in sore throat, cough, headache, stiff neck, rash, flank pain, chest pain, shortness or breath, dysuria, diarrhea, or vomiting or lower leg pain or swelling. She has incisional pain but its getting better and she only has to take ibuprofen. Denies and drainage from the incision. She denies any foul smelling vaginal discharge or uterine tenderness. Review of Systems Review of Systems Narrative Review of Systems: as above Past Medical History Past Medical History NEUROLOGIC: Positive Migraine GASTROINTESTINAL: Positive Gastroesophageal Reflux Disease HEMATOLOGIC: Positive Anemia Surgical History SURGICAL: Positive Section Social History SOCIAL: Denies any alcohol , drug use or smoking Meds Home Medications and Allergies Home Medications ?Medication ?Instructions ?Recorded ?Confirmed ?Type ferrous sulfate 325 mg (65 mg mg 12/18/24 History iron) tablet (FeroSul) vits no.130-ferrous fum tab 12/18/24 History 27 mg iron-folic acid 800 mcg tablet ( Vitamin) Allergies Allergy/AdvReac Type Severity Reaction Status Date / Time No Known Allergies Allergy Verified 12/24/24 18:43 Exam - 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 TEACHER - Results Labs 12/24/24 19:51 12/24/24 19:51 Labs: Short CBC 12/24/24 Range/Units 19:51 WBC 9.9 (3.6-11.0) Thou/mm3 Hgb 11.8 L (12.0-16.0) g/dL Hct 35.4 L (36.0-46.0) % Plt Count 345 D (140-440) Thou/mm3 BMP 12/24/24 19:51 Sodium 137 Potassium 3.9 Chloride 107 Carbon Dioxide 23.1 BUN 14 Creatinine 0.6 Glucose 100 Calcium 8.8 Liver Function 12/24/24 Range/Units 19:51 Total Bilirubin 0.9 (0.3-1.2) mg/dL AST 23 (0-34) U/L ALT 17 (10-49) U/L Alkaline Phosphatase 189 H (46-116) U/L Albumin 3.8 (3.5-5.0) gm/dL Urine 12/24/24 Range/Units 19:45 Urine Color Lt-Yellow (Lt Yel-Yel) Urine Clarity Clear (Clear/Hazy) Urine pH 6.5 (5.0-7.0) Ur Specific [place] 1.015 (1.001-1.035) Urine Protein Negative (Neg - Trace) Urine Glucose (UA) Negative (Negative) Impressions Impression: POD #7 S/P C/S with fever Breast engorgement Possible mild endometritis Doubtful RPOC due to C/S and placenta remnants are removed and the uterine contents evacuated prior to closure of uterine incision. In addition the patient does not have any excessive vaginal bleeding. Discharge home with Augmentin and follow up with me in the office tomorrow Discharge instructions given. Quality Measures Quality Measures none
[2024-12-25 00:47] VITALS: BP 125/85; PULSE 81; RESP 18; TEMP 36.9; O2SAT 97
[2024-12-25 01:12] VITALS: TEMP 36.9
[2024-12-25] MEDS: SODIUM CHLORIDE 0.9% 1000 ML 1,000 ML 999 ML IV (01:14)
[2024-12-25] MEDS: PIPER/TAZO 3.375 GM PREMIX 3.375 GM/50 ML BAG IV ×2 (01:23→06:15)
[2024-12-25 03:00] LABS: Respiratory Syncytial Virus Ag Negative (Negative)
[2024-12-25 03:14] VITALS: BMI 26.1
[2024-12-25] MEDS: DEXTROSE 5%-0.45% NS 1,000 ML 75 ML IV (03:17)
[2024-12-25 04:00] VITALS: BP 132/86; PULSE 78; RESP 18; TEMP 36.3; O2SAT 98
[2024-12-25 08:00] VITALS: BP 142/90; PULSE 72; RESP 18; TEMP 36.3; O2SAT 98
--- NOTE | 2024-12-25 08:45 | ESDS_ITS ---
Planned Discharge Date 12/25/24 DS: Providers Provider Date of admission: 12/24/24 23:52 Primary care physician: Lasha Espino MD Admitting Provider: Yung Krishna MD Attending Provider on Admission: Yung Krishna MD Attending Provider on DC: Yung Krishna MD Discharging Provider: Yung Krishna MD DS: Diagnosis Discharge Diagnosis (1) fever: Status: Acute (2) Previous section: Status: Acute (3) Endometritis: Status: Acute (4) UTI (urinary tract infection): Status: Acute (5) Breast engorgement: Status: Acute Problem List Completed Was Problem List Reviewed/Reconciled?: Yes Hospital Course Hospital Course Hospital course: Ms. SNOWDEN is a 29 year old female who is PostOp Day #7 S/P Ceasarean Delivery who presents to the ER complaining of fever with no other complaints. Her temperature in the ER was 100.3. She is breast feeding and report breast engorgment but no breast tenderness or masses or discoloration. She denies in sore throat, cough, headache, stiff neck, rash, flank pain, chest pain, shortness or breath, dysuria, diarrhea, or vomiting or lower leg pain or swelling. She has incisional pain but its getting better and she only has to take ibuprofen. Denies and drainage from the incision. She denies any foul smelling vaginal discharge or uterine tenderness. 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 Temp Pulse Resp BP Pulse Ox O2 Del Method 97.4 F 72 18 142/90 H 98 Room Air 12/25/24 08:00 12/25/24 08:00 12/25/24 08:00 12/25/24 08:00 12/25/24 08:00 12/25/24 08:00 Discharge Plan Plan Patient Disposition: HOME (Self Care) Patient condition on transfer: Stable Prescriptions/Referrals Prescriptions/Med Rec: New amoxicillin-pot clavulanate 875-125 mg tablet 1 tab PO Q12H Qty: 10 0RF Continued ferrous sulfate [FeroSul] 325 mg (65 mg iron) tablet Patient Comments: TAKE 1 TABLET BY MOUTH TWICE DAILY Vitamin 27 mg iron- 800 mcg tablet Patient Comments: TAKE 1 TABLET BY MOUTH ONCE DAILY hydrocodone-acetaminophen 5-325 mg tablet 1 tab PO Q6H MDD 4 PRN (Reason: pain) Qty: 20 0RF ibuprofen 600 mg tablet 600 mg PO Q6H MDD 4 PRN (Reason: pain) Qty: 30 0RF Referrals: Lasha Espino MD [Primary Care Provider] - Patient/Caregiver Discharge Instructions Discharge Activity: activity as tolerated Other Discharge Activity Instructions:: Follow up with Dr Krishna in the office Thursday at 2:30pm Print Language: Kenyan Stand Alone Forms: [employer] Award Info., Patient Portal Info Letter Discharge Order Discharge Orders: Discharge (Routine); Ordered 12/25/24 Ordered By: Yung Krishna
== END 2024-12-25 09:20 | disposition home or self-care (01) | DRG 776 ==
LOC: SERX 23:57 → SERHOLD 12-25 00:18 → S3SX 12-25 02:43
PROVIDERS: Physician Assistant; Admitting Provider Specialist; Emergency Provider Emergency Medicine; PCP Family Medicine; Visit Provider Specialist
DX: O86.20 Urinary tract infection following delivery, unspecified (principal); O86.12 Endometritis following delivery; Z98.891 History of uterine scar from previous surgery; N64.59 Other signs and symptoms in breast
CPT/HCPCS: 36415; 71045; 74176; 76830; 80053; 81001; 83605; 83615; 83690; 83735; 83880; 84100; 84145; 84484; 85025; 85610; 85652; 85730; 86140; 87040; 87070; 87081; 87086; 87400; 87634; 87651; 87811; G0378; J2543; J7030; J7042; A9270